=== PATIENT | male | born 1955 | race Caucasian/White ===

== ENCOUNTER 2016-11-07 13:40 | Observation (INO) | payer BC, OTHER ==
[~2016-11-07] VITALS: Ht 180.3 cm; Wt 96.2 kg
[~2016-11-07 13:40] MED LIST: ASPI81TA28 PO; ATOR-24 PO; CLOP1TAB15 PO; METO50TA7 PO; MULT-190 PO; NITR0.4S UT; [UNRECOGNIZED DRUG - CODE] PO
[2016-11-07] MEDS ORDERED: ASPI325T39 PO (14:44)
[2016-11-07 14:45] LABS: BASO % 0.3 %; BASO ABS # 0.02 K/uL (0-0.2); COMPLETE YES; EOS % 2.1 %; HEMATOCRIT 44.3 % (42-52); IG% 0.1 %; LYMPH % 29.2 %; LYMPH ABS # 1.95 K/uL (1.2-3.4); MEAN CORPUSCULAR HEMOGLOBIN 30.3 pg (25-34); MEAN CORPUSCULAR HGB CONC 33.6 g/dl (32-36); MEAN PLATELET VOLUME 11.4 fL (7.4-10.4); MONO % 17.1 %; NEUT % 51.2 %; PLATELET COUNT 218 K/uL (130-400); RED BLOOD COUNT 4.92 M/uL (4.7-6.1); WHITE BLOOD COUNT 6.68 K/uL (4.8-10.8)
[2016-11-07] MEDS ORDERED: ATOR80TA PO (14:45)
--- NOTE | 2016-11-07 14:45 | EMERGENCY ROOM VISIT NOTE ---
History Report prepared by Xavier: Katarina Lauren Under the Supervision of: Dr. Ramiro Rodriguez M.D. First contact with patient: 14:10 Chief Complaint: CARDIAC ASSESSMENT Stated Complaint: DIZZY,LIGHTHEADED,HEART CONDITION Nursing Triage Summary: PT HERE SOME LIGHTHEADEDNESS AFTER GETTING UP FROM CHAIR WHILE AT HOME TODAY. PTS STATES HE WAS PALE. PT DENIES ANY CHEST PAIN OR SOB PT CHECKED BP AT HOME AND STATES IT WAS ELEVATED HX OF SEVERAL CARDIAC STENTS History of Present Illness The patient is a 61 year old male who presents to the Emergency Room with complaints of a sudden episode of dizziness that occurred earlier today. The patient states that he was sitting at a desk doing work and when he got up he became very dizzy. He ambulated to get his blood pressure cuff and when he measured his blood pressure it was 180/110 so he figured that he should come into the hospital. He denies any chest pain. The patient's states that he looks pale to her. The patient states that he has been eating normally and taking his medications normally. The patient has a history a heart disease and has multiple stents in his heart. His adds that he still has a minor artery in the back of his heart that is blocked because they were unable to stent it. When the patient had his first [place] in 2004, he had chest pain but in 2009 he did not have any chest pain and just had a syncopal event. Source of History: patient, spouse/significant other () Onset: earlier today Position: head Quality: other (dizziness) Timing: other (sudden) Associated Symptoms: No chest pain Review of Systems See HPI for pertinent positives & negatives. A total of 10 systems reviewed and were otherwise negative. Past Medical & Surgical Medical Problems: (1) AC MYOCARD INFARCT,OTH ANTER WALL,SUBSEQ EPI UNSPE (2) Benign hypertension (3) CAD (coronary artery disease) (4) Cardiac arrest (5) Chronic ischemic heart disease (6) Dizziness (7) Hyperlipidemia Surgical Problems: (1) S/P coronary artery stent placement (2) S/p lumbar spinal surgery Family History Lung disease Social History Smoking Status: Never Smoker Marital Status: Housing Status: lives with family Occupation Status: employed Current/Historical Medications Scheduled Ascorbic Acid (Vitamin C Tr/Christy Hips), 1 TAB PO DAILY Aspirin (Aspirin Ec), 325 MG PO DAILY Atorvastatin Calcium (Lipitor), 80 MG PO DAILY Clopidogrel (Plavix), 75 MG PO DAILY Lisinopril (Lisinopril), 2.5 MG PO DAILY Multiple Vitamins W/ Minerals (Centrum Adults), 1 TAB PO DAILY [place] 3 Fatty Acids-[place] 6 Fa ([place] 3-6-9 Complex), 1 CAP PO DAILY [cardio relax], 1 TAB PO DAILY [myocord balance], 1 TAB PO DAILY Scheduled PRN Nitroglycerin (Nitrostat), 0.4 MG UT PRN PRN for Chest Pain Allergies Coded Allergies: No Known Allergies (Unverified , 11/07/16) Physical Exam Vital Signs Date Time Temp Pulse Resp B/P Pulse Ox O2 Delivery O2 Flow Rate FiO2 11/07/16 14:30 57 17 93 11/07/16 14:30 98 Nasal Cannula 2.0 11/07/16 14:28 162/86 11/07/16 14:25 54 17 95 11/07/16 14:20 57 21 97 11/07/16 14:15 56 26 96 11/07/16 14:14 143/96 11/07/16 14:10 58 19 95 11/07/16 14:08 57 11/07/16 14:05 54 23 96 11/07/16 14:02 97 Room Air 11/07/16 14:00 57 16 155/84 98 Room Air 11/07/16 13:59 155/84 11/07/16 13:43 36.4 59 16 176/100 99 Room Air Physical Exam GENERAL: Patient is a healthy-appearing well-nourished middle-aged male HEAD: Normocephalic atraumatic EYES: Ocular movements intact pupils equal and react to light OROPHARYNX mucous membranes are moist no exudates present no erythema or edema present NECK: Supple no nuchal rigidity CHEST: Good equal expansion LUNGS: Clear and equal to auscultation CARDIAC: Normal S1 and S2 ABDOMEN: Soft nontender no guarding BACK: No CVA tenderness EXTREMITIES: No pain upon palpation normal muscle strength in all groups no clubbing cyanosis or edema NEURO: Patient is following commands is answering questions appropriately. Alert and oriented x3 Cranial Nerves 2-12 grossly intact Medical Decision & Procedures ER Provider Diagnostic Interpretation: X-ray results as stated below per interpretation by me and the radiologist: CHEST ONE VIEW PORTABLE CLINICAL HISTORY: Atypical chest pain COMPARISON STUDY: 11/14/2012 FINDINGS: The cardiac and mediastinal contours remain stable. There is no focal pulmonary consolidation. There are no pleural effusions. There is no failure. There are minor right basilar atelectatic changes.[ IMPRESSION: No active disease in the chest. Electronically signed by: Easton Garcia M.D. 11/07/2016 2:45 PM Laboratory Results 11/07/16 14:15 Red Blood Count 4.92, Mean Corpuscular Volume 90.0, Mean Corpuscular Hemoglobin 30.3, Mean Corpuscular Hemoglobin Concent 33.6, Mean Platelet Volume 11.4, Neutrophils (%) (Auto) 51.2, Lymphocytes (%) (Auto) 29.2, Monocytes (%) (Auto) 17.1, Eosinophils (%) (Auto) 2.1, Basophils (%) (Auto) 0.3, Neutrophils # (Auto ) 3.42, Lymphocytes # (Auto) 1.95, Monocytes # (Auto) 1.14, Eosinophils # (Auto ) 0.14, Basophils # (Auto) 0.02 11/07/16 14:15 Test 11/07/16 14:15 White Blood Count 6.68 K/uL (4.8-10.8) Red Blood Count 4.92 M/uL (4.7-6.1) Hemoglobin 14.9 g/dL (14.0-18.0) Hematocrit 44.3 % (42-52) Mean Corpuscular Volume 90.0 fL (80-100) Mean Corpuscular Hemoglobin 30.3 pg (25-34) Mean Corpuscular Hemoglobin Concent 33.6 g/dl (32-36) Platelet Count 218 K/uL (130-400) Mean Platelet Volume 11.4 fL (7.4-10.4) Neutrophils (%) (Auto) 51.2 % Lymphocytes (%) (Auto) 29.2 % Monocytes (%) (Auto) 17.1 % Eosinophils (%) (Auto) 2.1 % Basophils (%) (Auto) 0.3 % Neutrophils # (Auto) 3.42 K/uL (1.4-6.5) Lymphocytes # (Auto) 1.95 K/uL (1.2-3.4) Monocytes # (Auto) 1.14 K/uL (0.11-0.59) Eosinophils # (Auto) 0.14 K/uL (0-0.5) Basophils # (Auto) 0.02 K/uL (0-0.2) RDW Standard Deviation 43.8 fL (36.4-46.3) RDW Coefficient of Variation 13.4 % (11.5-14.5) Immature Granulocyte % (Auto) 0.1 % Immature Granulocyte # (Auto) 0.01 K/uL (0.00-0.02) Prothrombin Time 10.7 SECONDS (9.0-12.0) Prothromb Time International Ratio 1.0 (0.9-1.1) D-Dimer 250 ug/L FEU (0-500) Anion Gap 9.0 mmol/L (3-11) Est Creatinine Clear Calc Drug Dose 84.1 ml/min Estimated GFR () 83.5 Estimated GFR (Non- 72.1 BUN/Creatinine Ratio 13.5 (10-20) Calcium Level 8.5 mg/dl (8.5-10.1) Total Bilirubin 0.7 mg/dl (0.2-1) Direct Bilirubin 0.2 mg/dl (0-0.2) Aspartate Amino Transf (AST/SGOT) 31 U/L (15-37) Alanine Aminotransferase (ALT/SGPT) 49 U/L (12-78) Alkaline Phosphatase 93 U/L (45-117) Total Protein 7.7 gm/dl (6.4-8.2) Albumin 3.8 gm/dl (3.4-5.0) Lipase 106 U/L (73-393) Thyroid Stimulating Hormone (TSH) 2.220 uIu/ml (0.300-4.500) Lyme Disease IgG Antibody NEG (NEG) Lyme Disease IgM Antibody NEG (NEG) Hepatitis C Antibody Screen NEG (NEG) Labs reviewed by ED physician. ECG Indication: other (dizziness) Rate (beats per minute): 58 Rhythm: sinus bradycardia Findings: no acute ischemic change, no ectopy ED Course 1419: Past medical records reviewed. The patient was evaluated in room B4. A complete history and physical examination was performed. 1517: Upon reexamination the patient is resting comfortably. I discussed results and treatment plan with the patient. He verbalizes agreement and understanding. The patient will be evaluated for further management. 1521: I discussed the patient's case with Tiff Jeff, she has agreed to evaluate the patient for further management and care. Medical Decision Differential diagnosis: Etiologies such as cardiac ischemia, aortic dissection, pulmonary embolism, pneumonia, pneumothorax, musculoskeletal, infections, pericarditis, myocarditis , esophageal rupture, gastrointestinal, as well as others were entertained. This is a 61-year-old male who presents emergency department complaining of weakness and dizziness after standing up today. The patient has normal orthostatic vital signs. I'm concerned about the patient's story because these are the same symptoms but the patient had when he had a heart attack and needed stents approximate 4 years ago. Based on this finding I did discuss the case with the hospitalist service who agreed to admit the patient for cardiac rule out. The patient has normal CK-MB troponin as well as EKG. I discussed my findings with the patient in the hospital service who were in agreement with the treatment plan. Consults Time Called: 1516 Consulting Physician: Tiff Jeff Returned Call: 1521 I discussed the patient's case with Tiff Jeff, she has agreed to evaluate the patient for further management and care. Impression Primary Impression: Dizziness Scribe Attestation The scribe's documentation has been prepared under my direction and personally reviewed by me in its entirety. I confirm that the note above accurately reflects all work, treatment, procedures, and medical decision making performed by me. Departure Information Dispostion Being Evaluated By Hospitalist Prescriptions Lisinopril (Lisinopril) 2.5 Mg Tab 2.5 MG PO DAILY for 30 Days, #30 TABS 5 Refills Prov: Katty Aguirre M.D. 11/08/16 Referrals Cierra Vigil M.D. (PCP) Patient Instructions A Signature Page, My [facility]
[2016-11-07 14:52] LABS: ALT/SGPT 49 U/L (12-78); AST/SGOT 31 U/L (15-37); BLOOD UREA NITROGEN 15 mg/dl (7-18); BUN/CREATININE RATIO 13.5 (10-20); CALCIUM 8.5 mg/dl (8.5-10.1); CARBON DIOXIDE 29 mmol/L (21-32); CHLORIDE 105 mmol/L (98-107); GLUCOSE 87 mg/dl (70-99); POTASSIUM 4.1 mmol/L (3.5-5.1); SODIUM 143 mmol/L (136-145)
[2016-11-07 14:57] LABS: ALKALINE PHOSPHATASE 93 U/L (45-117); CKMB/CK RATIO 1.7 (0-3.0)
[2016-11-07] MEDS ORDERED: NITROGLYCERIN 0.4 MG SL PER TAB CHARGE UT PRN (15:30)
[2016-11-07 15:40] VITALS: O2SAT 95; Ht 180.3 cm; Wt 96.2 kg
[2016-11-07] MEDS ORDERED: ALUMINUM/MAGNESIUM/SIMETH (MAALOX MAX) 30 ML UDC PO PRN (15:45)
[2016-11-07] MEDS ORDERED: ACETAMINOPHEN 325 MG TAB PO PRN (15:45)
[2016-11-07] MEDS ORDERED: NITROGLYCERIN 0.4 MG SL PER TAB CHARGE SL PRN (15:45)
[2016-11-07] MEDS ORDERED: POLYETHYLENE (MIRALAX) 17 GM PACK PO PRN (15:45)
[2016-11-07] MEDS ORDERED: ONDANSETRON INJ 2 MG/ML 2 ML VIAL IV PRN (15:45)
[2016-11-07] MEDS ORDERED: MAGNESIUM HYDROXIDE SUSP 30 ML UDC PO PRN (15:45)
[2016-11-07] MEDS ORDERED: MULT-610 PO (16:09)
[2016-11-07] MEDS ORDERED: OMEG1CAP71 PO (16:14)
[2016-11-07] MEDS ORDERED: ASCO500T87 PO (16:14)
[2016-11-07] MEDS ORDERED: [UNRECOGNIZED DRUG - OTHER] PO (16:14)
[2016-11-07] MEDS ORDERED: [UNRECOGNIZED DRUG - OTHER] PO (16:14)
[2016-11-07 16:27] LABS: PROTHROMBIN TIME (PATIENT) 10.7 SECONDS (9.0-12.0)
--- NOTE | 2016-11-07 16:51 | History and Physical ---
History & Physical Date & Time of Service: Nov 07, 2016 at 16:14 Chief Complaint: Dizzy,Lightheaded,Heart Condition Primary Care Physician: Cierra Vigil M.D. History of Present Illness Source: patient, spouse ( at bedside), clinic records This is a 61 y/o male with PMH of CAD s/p multiple stents, HTN, dyslipidemia, who presents to the ED with dizziness episode. Pt follows with Dr. Vigil for primary care and Dr. Johnson for cardiology. Patient states he was in his normal state of health until 10:30 am today he was sitting at his computer then stood up and became lightheaded. He checked his HR on his apple watch and it was 54. He used his home BP cuff and found BP of 176/106. He states he BP usually runs 120s/70s and HR usually runs around 66 at home. The episode lasted 30 minutes and then resolved spontaneously. He was standing and sitting during that time and did not notice improvement with sitting. He ate his usual breakfast today- a bagel and breakfast bar and 2 cups of coffee. He took his usual meds today including metoprolol succinate 50 mg. Recently his atorvastatin was increased to 80 mg daily. About 4 days ago he started supplements he ordered online called Myocord and Cardio Relax. No other recent med changes. He reports intermittent upset stomach after drinking coffee but no vomiting or diarrhea. PO intake has been normal. He has been active walking every day. Denies fever, chills, URI symptoms, LOC, RAMIRES, vision change, focal weakness or numbness, speech difficulty, vertigo, hearing loss, tinnitus, chest pain, palpitations, SOB, ZEPEDA, cough, abdominal pain calf pain or swelling. He states his [place] in 2009 presented as dizziness and syncope. Last stress test negative in 02/2015. Past Medical/Surgical History Medical Problems: (1) AC MYOCARD INFARCT,OTH ANTER WALL,SUBSEQ EPI UNSPE Status: Resolved (2) Benign hypertension Status: Chronic (3) CAD (coronary artery disease) Permanent Comment: S/[place] [facility] [place], NSTEMI 08/27/2010 with VF cardiac arrest s/p successful resuscitation, s/p PCI to LAD with TUAN [place] [facility] [place]; abnormal stress test in May 2011- repeat cath June 2011 at [facility] [place] showed patent LAD and RCA stents, obtuse marginal culprit for ischemia- not amenable to PCI Status: Chronic (4) Cardiac arrest Status: Resolved (5) Chronic ischemic heart disease Status: Chronic (6) Hyperlipidemia Status: Chronic Surgical Problems: (1) S/P coronary artery stent placement Status: Chronic (2) S/p lumbar spinal surgery Status: Chronic Family History Cardiac disorder FATHER UNCLE Diabetes mellitus FATHER Lung disease Social History Smoking Status: Never Smoker Alcohol Use: 3 beers a few times per week. last intake yesterday. Drug Use: none Marital Status: Housing status: lives with significant other Occupational Status: employed Immunizations History of Influenza Vaccine: Yes History of Tetanus Vaccine?: Yes History of Pneumococcal: Yes History of Hepatitis B Vaccine: No Multi-Drug Resistant Organisms History of MDRO: No Allergies Coded Allergies: No Known Allergies (Unverified , 11/07/16) Home Medications Scheduled Ascorbic Acid (Vitamin C Tr/Christy Hips), 1 TAB PO DAILY Aspirin (Aspirin Ec), 325 MG PO DAILY Atorvastatin Calcium (Lipitor), 80 MG PO DAILY Clopidogrel (Plavix), 75 MG PO DAILY Metoprolol Succ (Toprol Xl) (Toprol-Xl), 50 MG PO DAILY Multiple Vitamins W/ Minerals (Centrum Adults), 1 TAB PO DAILY [place] 3 Fatty Acids-[place] 6 Fa ([place] 3-6-9 Complex), 1 CAP PO DAILY [cardio relax], 1 TAB PO DAILY [myocord balance], 1 TAB PO DAILY Scheduled PRN Nitroglycerin (Nitrostat), 0.4 MG UT PRN PRN for Chest Pain Review of Systems Ten system ROS obtained with pertinent positives and negatives noted in HPI. Physical Exam Vital Signs Date Time Temp Pulse Resp B/P Pulse Ox O2 Delivery O2 Flow Rate FiO2 11/07/16 15:40 95 Room Air 11/07/16 14:30 57 17 93 11/07/16 14:30 98 Nasal Cannula 2.0 11/07/16 14:28 162/86 11/07/16 14:25 54 17 95 11/07/16 14:20 57 21 97 11/07/16 14:15 56 26 96 11/07/16 14:14 143/96 11/07/16 14:10 58 19 95 11/07/16 14:08 57 11/07/16 14:05 54 23 96 11/07/16 14:02 97 Room Air 11/07/16 14:00 57 16 155/84 98 Room Air 11/07/16 13:59 155/84 11/07/16 13:43 36.4 59 16 176/100 99 Room Air General Appearance: WD/WN, no apparent distress, + pertinent finding (pleasant alert 61 y/o male, at bedside) Head: normocephalic, atraumatic Eyes: normal inspection, PERRL, EOMI ENT: normal ENT inspection, hearing grossly normal, pharynx normal Neck: supple, no JVD, no carotid bruits, trachea midline Respiratory/Chest: lungs clear, normal breath sounds, no respiratory distress, no accessory muscle use Cardiovascular: no murmur, + bradycardia (HR 58-60, regular), + pertinent finding (radial pulses 2+, DP pulses 1+) Abdomen/GI: normal bowel sounds, non tender, soft Extremities/Musculoskelatal: normal inspection, no calf tenderness, no pedal edema Neurologic/Psych: sound cutter II-XII nml as tested, alert, normal mood/affect, oriented x 3, + pertinent finding (no focal motor deficit- strength 5/5 all extremities) Skin: normal color, warm/dry Diagnostics Laboratory Results Results Past 24 Hours Test 11/07/16 14:15 Range/Units White Blood Count 6.68 4.8-10.8 K/uL Red Blood Count 4.92 4.7-6.1 M/uL Hemoglobin 14.9 14.0-18.0 g/dL Hematocrit 44.3 42-52 % Mean Corpuscular Volume 90.0 80-100 fL Mean Corpuscular Hemoglobin 30.3 25-34 pg Mean Corpuscular Hemoglobin Concent 33.6 32-36 g/dl Platelet Count 218 130-400 K/uL Mean Platelet Volume 11.4 7.4-10.4 fL Neutrophils (%) (Auto) 51.2 % Lymphocytes (%) (Auto) 29.2 % Monocytes (%) (Auto) 17.1 % Eosinophils (%) (Auto) 2.1 % Basophils (%) (Auto) 0.3 % Neutrophils # (Auto) 3.42 1.4-6.5 K/uL Lymphocytes # (Auto) 1.95 1.2-3.4 K/uL Monocytes # (Auto) 1.14 0.11-0.59 K/uL Eosinophils # (Auto) 0.14 0-0.5 K/uL Basophils # (Auto) 0.02 0-0.2 K/uL RDW Standard Deviation 43.8 36.4-46.3 fL RDW Coefficient of Variation 13.4 11.5-14.5 % Immature Granulocyte % (Auto) 0.1 % Immature Granulocyte # (Auto) 0.01 0.00-0.02 K/uL Sodium Level 143 136-145 mmol/L Potassium Level 4.1 3.5-5.1 mmol/L Chloride Level 105 98-107 mmol/L Carbon Dioxide Level 29 21-32 mmol/L Anion Gap 9.0 3-11 mmol/L Blood Urea Nitrogen 15 7-18 mg/dl Creatinine 1.10 0.60-1.40 mg/dl Est Creatinine Clear Calc Drug Dose 84.1 ml/min Estimated GFR () 83.5 Estimated GFR (Non- 72.1 BUN/Creatinine Ratio 13.5 10-20 Random Glucose 87 70-99 mg/dl Calcium Level 8.5 8.5-10.1 mg/dl Total Bilirubin 0.7 0.2-1 mg/dl Direct Bilirubin 0.2 0-0.2 mg/dl Aspartate Amino Transf (AST/SGOT) 31 15-37 U/L Alanine Aminotransferase (ALT/SGPT) 49 12-78 U/L Alkaline Phosphatase 93 45-117 U/L Total Creatine Kinase 94 39-308 U/L Creatine Kinase MB 1.6 0.5-3.6 ng/ml Creatine Kinase MB Ratio 1.7 0-3.0 Troponin I < 0.015 0-0.045 ng/ml Total Protein 7.7 6.4-8.2 gm/dl Albumin 3.8 3.4-5.0 gm/dl Lipase 106 73-393 U/L Diagnostic Radiology CHEST ONE VIEW PORTABLE CLINICAL HISTORY: Atypical chest pain COMPARISON STUDY: 11/14/2012 FINDINGS: The cardiac and mediastinal contours remain stable. There is no focal pulmonary consolidation. There are no pleural effusions. There is no failure. There are minor right basilar atelectatic changes.[ IMPRESSION: No active disease in the chest. EKG sinus bradycardia, rate 58, no T wave or ST abnormalities Impression Assessment and Plan DIZZINESS EPISODE- resolved Observation to telemetry Patient with significant cardiac history outlined below Currently in sinus bradycardia rate 50s- may be contributing; BP elevated; CXR unremarkable EKG non-ischemic; troponin negative- will trend serial enzymes; recheck EKG in am Check orthostatic vitals Hold beta graciela (metoprolol succinate 50 mg daily) for bradycardia Check TSH Check echo Tele monitoring to r/o arrhythmia CAD S/P MULTIPLE STENTS S/p RCA stent [place] [facility] [place], NSTEMI 08/27/2010 with VF cardiac arrest s/p successful resuscitation, s/p PCI to LAD with TUAN at [facility] [place]; abnormal stress test in May 2011- repeat cath June 2011 at [facility] [place] showed patent LAD and RCA stents, obtuse marginal culprit for ischemia- not amenable to PCI Last exercise stress echo 02/2015 negative; resting study showed EF 55-59%, grade I diastolic dysfunction, no significant valvular disease Denies chest pain; EKG non-ischemic, trop negative x 1- will trend Continue aspirin, Plavix, statin Hold BB for bradycardia Follows with Dr. Johnson Instructed patient not to take supplements without talking to collections associate HYPERTENSION BP is elevated Hold metoprolol for bradycardia DYSLIPIDEMIA Recent lipid panel 09/11/2016 showed LDL 91 Atorvastatin recently increased from 40 mg -> 80 mg- continue Check lipid panel in AM DVT PROPHYLAXIS Heparin SQ DISPOSITION Tele observation Lives at home with . Patient seen in collaboration with Dr. Aguirre. Please see her addendum. ATTENDING NOTE : pt seen and examined, in agreement with above h&P 61 yo M with past medical hx of extensive Cardiac hx -PTCA .-multiple , V fib cardiac arrest , HTN presented with episode of dizzy spell pt was working on his computer for few hours -stood up felt dizzy , lightheaded , no syncope did not had nausea, diaphoresis , no SOB , no chest heaviness checked his HR was in 50's , BP was elevated ~ 170 His dizzy spell lasted for 30 mins resolved spontaneously in the ED -pt was absolutely symptom free cardiac markers been negative , EKG sinus bradycardia , Cxray wnl P/E: GEn : no sign of distress HEENT : sclera non icteric , PERRLA/EOMI Lungs: CTA ,no wheeze or rales Abdomen: soft,. non tender ext : no rash or deformity Neuro: no focal neurological deficit A/P : Dizzy spell : not sure of the etiology pt does not have any neurological symptom , no visual complain, no headache found to be bradycardic observe in Tele to R/o arrhythmia will hold Beta graciela TSH -wnl serial cardiac markers , resting ECHO in AM ordered for orthostatic vitals Hx of CAD : s/p multiple PTCA recently evaluated by Dr Johnson -found to be instable cardiac health no chest pain or SOB at baseline pt dose exercise , work out in static bicycle -does not experience any chest discomfort , SOB or angina with exertion pt will be continued on Aspirin , Plavix , statin hold Beta graciela for possible symptomatic bradycardia pt will need out pt stress test last cardiac stress test was 2 yrs back -wnl Hyperlipidemia : Lipitor level recently increased to 80 mg daily by cardiology Fasting lipid panel ordered Full code DISPOSITION : possible D/c home tomorrow if preliminary cardiac work up negative will need out pt stress test Level of Care Telemetry Advanced Directives Existing Advance Directive: No Existing Living Will: Yes Existing Power of Communications Editor: No Resuscitation Status FULL RESUSCITATION VTE Prophylaxis VTE Risk Assessment Done? Y/N: Yes Risk Level: Moderate Given or contraindicated: T.E.D. Stockings, SCD's
[2016-11-07] MEDS ORDERED: IV FLUIDS COMPLETED PRN (17:15)
[2016-11-07 17:54] LABS: LYME DISEASE AB IGG NEG (NEG); LYME DISEASE AB IGM NEG (NEG)
[2016-11-07 18:14] VITALS: O2SAT 96
[2016-11-07 18:33] VITALS: BP 154/91; PULSE 60; TEMP 36.6; O2SAT 96
[2016-11-07] MEDS ORDERED: SODIUM CHLORIDE 0.9% 1000ML 1,000 ML IV SCH (19:00)
[2016-11-07] MEDS: HEPARIN SOD 5000 UNIT/0.5 ML CARP SQ SCH (20:34)
[2016-11-07 22:08] LABS: CKMB/CK RATIO 1.8 (0-3.0)
[2016-11-07 23:29] VITALS: BP 160/82; PULSE 59; TEMP 36.3; O2SAT 95
[2016-11-08 05:09] VITALS: BP_SYST 144; BP_SYST 159; BP_DIAS 79; PULSE 57; PULSE 88; TEMP 36.4; TEMP 36.9; O2SAT 90; O2SAT 95
[2016-11-08 06:22] LABS: CHOLESTEROL 134 mg/dl (0-200); CHOLESTEROL/HDL RATIO 3.4; CKMB/CK RATIO 2.2 (0-3.0); HDL CHOLESTEROL 40 mg/dl; LDL CHOLESTEROL CALCULATED 68 mg/dl; TRIGLYCERIDES 129 mg/dl (0-150); VERY LOW DENSITY LIPOPROT CALC 26 mg/dl
--- NOTE | 2016-11-08 07:33 | Discharge Instructions ---
Discharge Instructions Admission Reason for Admission: Dizziness Discharge Discharge Diagnosis / Problem: DIZZY SPELL /BRADYCARDIA Discharge Goals Goal(s): Improve disease control, Diagnostic testing Activity Recommendations Activity Limitations: resume your previous activity . Instructions / Follow-Up Instructions / Follow-Up HOSPITAL FOLLOW UP WITH DR PAIGE IN A WEEK , OFFICE WILL CALL WITH APPOINTMENT CARDIOLOGY FOLLOW UP WITH DR BROOKS IN 2-3 WEEKS DO NOT TAKE LOPRESSOR TILL EVALUATED BY CARDIOLOGY PLEASE DISCUSS WITH CARDIOLOGY BEFORE TAKING ANY ADDITIONAL SUPPLEMENTAL MEDICATION FOR YOUR HEART CONDITION WILL NEED OUT PATIENT STRESS TEST Current Hospital Diet Patient's current hospital diet: AHA Diet (Heart Healthy) Discharge Diet Recommended Diet: AHA Diet (Heart Healthy) Pending Studies Studies pending at discharge: no Laboratory Results Lipid Panel Test 11/08/16 05:35 Range/Units Triglycerides Level 129 0-150 mg/dl Cholesterol Level 134 0-200 mg/dl HDL Cholesterol 40 mg/dl Cholesterol/HDL Ratio 3.4 LDL Cholesterol, Calculated 68 mg/dl Medical Emergencies . Who to Call and When: Medical Emergencies: If at any time you feel your situation is an emergency, please call 911 immediately. . Non-Emergent Contact Non-Emergency issues call your: Primary Care Provider . . "Provider Documentation" section prepared by Katty Aguirre. VTE Core Measure Inpt VTE Proph given/why not?: LORENA Bazzi's [place] Drug Monitoring Program Search Results: no issues identified
[2016-11-08] MEDS: HEPARIN SOD 5000 UNIT/0.5 ML CARP SQ SCH (07:38)
[2016-11-08 08:07] VITALS: BP_SYST 152; PULSE 50; TEMP 36.4; O2SAT 93
--- NOTE | 2016-11-08 08:52 | ECHOCARDIOGRAM REPORT ---
*NOTICE TO RECEIVING CONSTITUTION PARTY AGENCY This information is strictly Confidential and protected under [place] law. [place] law prohibits you from making any further disclosure of this information unless further disclosure is expressly permitted by the written consent of the person to whom it pertains or is authorized by law. A general authorization for the release of medical or other information is not sufficient for this purpose. Hospital accepts no responsibility if the information is made available to any other person, INCLUDING THE PATIENT. Interpretation Summary * Name: TIFFANIE MANNING Study Date: 11/08/2016 07:39 AM BP: 144/79 mmHg * Patient Location: [facility]\S\N288\S\1 HR: 57 * : 1955 (M/d/yyyy) Gender: Male Height: 70 in * Age: 61 yrs Ethnicity: [place] Weight: 216 lb * Ordering Physician: Katty Aguirre * Referring Physician: Self, Referred * Performed By: Kary Langley RDCS * * Reason For Study: Chest Pain, Bradycardia, Dizziness. * BSA: 2.2 m2 * -- Conclusions -- * Normal LV chamber size with mild concentric LVH. * Normal LV systolic function, EF 55-60%. * No segmental left ventricular wall motion abnormalities are noted. * Grade I diastolic dysfunction. * No significant valvular pathology. Procedure Details * A complete two-dimensional transthoracic echocardiogram was performed (2D, M-mode, Doppler and color flow Doppler). Left Ventricle * The left ventricle is normal in size. * There is mild concentric left ventricular hypertrophy. * Ejection Fraction = 55-60%. * Left ventricular systolic function is normal. * No segmental left ventricular wall motion abnormalities are noted. * The left ventricular wall motion is normal. Right Ventricle * The right ventricular cavity size is normal (basal dimension <4.2 cm in right ventricular apical 4-chamber view). * The right ventricular systolic function is normal as assessed by tricuspid annular plane systolic excursion (TAPSE) (normal >1.5 cm). Atria * The left atrium is mildly dilated. * Right atrial size is normal. * No ASD detected; PFO is not assessed. Mitral Valve * The mitral valve is normal in structure and function. Tricuspid Valve * The tricuspid valve is normal in structure and function. Aortic Valve * The aortic valve is normal in structure and function. Pulmonic Valve * The pulmonary valve is not well seen, but the Doppler examination is normal without significant regurgitation or stenosis. Great Vessels * The aortic root is normal size. Pericardium/Pleural * There is no pericardial effusion. Left Ventricular Diastolic Function * Grade I diastolic dysfunction, (abnormal relaxation pattern). MMode 2D Measurements and Calculations IVSd 1.2 cm IVSs 1.6 cm LVIDd 5.7 cm LVIDs 3.9 cm LVPWd 0.88 cm LVPWs 1.3 cm IVS/LVPW 1.4 FS 31.9 % EDV(Teich) 160.7 ml ESV(Teich) 65.4 ml EF(Teich) 59.3 % EDV(cubed) 186.2 ml ESV(cubed) 58.8 ml EF(cubed) 68.4 % % IVS thick 29.6 % % LVPW thick 43.3 % LV mass(C)d 245.3 grams LV mass(C)dI 113.8 grams/m\S\2 LV mass(C)s 208.4 grams LV mass(C)sI 96.6 grams/m\S\2 SV(Teich) 95.3 ml SI(Teich) 44.2 ml/m\S\2 SV(cubed) 127.4 ml SI(cubed) 59.1 ml/m\S\2 Ao root diam 3.8 cm Ao root area 11.2 cm\S\2 ACS 2.4 cm LA dimension 4.3 cm LA/Ao 1.1 LVAd ap4 33.1 cm\S\2 LVLd ap4 8.9 cm EDV(MOD-sp4) 104.9 ml EDV(sp4-el) 104.6 ml LVAs ap4 19.1 cm\S\2 LVLs ap4 7.2 cm ESV(MOD-sp4) 44.3 ml ESV(sp4-el) 42.7 ml EF(MOD-sp4) 57.7 % EF(sp4-el) 59.2 % LVAd ap2 31.3 cm\S\2 LVLd ap2 8.9 cm EDV(MOD-sp2) 96.0 ml EDV(sp2-el) 93.2 ml LVAs ap2 17.7 cm\S\2 LVLs ap2 7.3 cm ESV(MOD-sp2) 38.7 ml ESV(sp2-el) 36.3 ml EF(MOD-sp2) 59.6 % EF(sp2-el) 61.0 % LVLd %diff 0.54 % EDV(MOD-bp) 99.9 ml LVLs %diff 1.5 % ESV(MOD-bp) 41.8 ml EF(MOD-bp) 58.1 % SV(MOD-sp4) 60.5 ml SI(MOD-sp4) 28.1 ml/m\S\2 SV(MOD-sp2) 57.2 ml SI(MOD-sp2) 26.5 ml/m\S\2 SV(MOD-bp) 58.1 ml SI(MOD-bp) 26.9 ml/m\S\2 SV(sp4-el) 61.9 ml SI(sp4-el) 28.7 ml/m\S\2 SV(sp2-el) 56.9 ml SI(sp2-el) 26.4 ml/m\S\2 Doppler Measurements and Calculations MV E max hansel 57.7 cm/sec MV A max hansel 69.6 cm/sec MV E/A 0.83 MV dec time 0.36 sec Ao V2 max 98.0 cm/sec Ao max PG 3.8 mmHg Ao max PG (full) 1.0 mmHg LV V1 max PG 2.8 mmHg LV V1 max 83.8 cm/sec PA V2 max 92.4 cm/sec PA max PG 3.4 mmHg PI max hansel 180.1 cm/sec PI max PG 13.0 mmHg PI dec slope 193.0 cm/sec\S\2 PI P1/2t 273.4 msec
[2016-11-08] MEDS ORDERED: METOPROLOL SUCC 50MG EXT REL TAB PO SCH (09:00)
[2016-11-08] MEDS ORDERED: ASPIRIN 325 MG ECTAB PO SCH (09:00)
[2016-11-08] MEDS ORDERED: ATORVASTATIN 40 MG TAB PO SCH (09:00)
[2016-11-08] MEDS ORDERED: CEROVITE ADV FORMULA TAB PO SCH (09:00)
[2016-11-08] MEDS ORDERED: CLOPIDOGREL BISULFATE 75 MG TAB PO SCH (09:00)
[2016-11-08] MEDS ORDERED: LSN25 PO (11:03)
[2016-11-08] MEDS ORDERED: LISINOPRIL 2.5 MG TAB PO ONE (11:15)
[2016-11-08 11:29] VITALS: BP 146/91; PULSE 65; TEMP 37; O2SAT 98
[2016-11-08 11:43] VITALS: BP 146/91; PULSE 65; TEMP 37; O2SAT 98
[2016-11-08] MEDS ORDERED: LISINOPRIL 2.5 MG TAB PO SCH (11:45)
--- NOTE | 2016-11-08 20:50 | Discharge Summary ---
Discharge Summary Admission Date: Nov 07, 2016 at 15:33 Discharge Date: Nov 08, 2016 Discharge Disposition: Home Principal Diagnosis: DIZZY SPELL /BRADYCARDIA Procedures: ECHO 11/08/16 : Normal LV chamber size with mild concentric LVH. Normal LV systolic function, EF 55-60%. No segmental left ventricular wall motion abnormalities are noted. Grade I diastolic dysfunction. No significant valvular pathology. CARDIAC MONITORING Pending Studies/Follow-Up: HOSPITAL FOLLOW UP WITH DR VIGIL IN A WEEK , OFFICE WILL CALL WITH APPOINTMENT CARDIOLOGY FOLLOW UP WITH DR BROOKS IN 2-3 WEEKS DO NOT TAKE LOPRESSOR TILL EVALUATED BY CARDIOLOGY PLEASE DISCUSS WITH CARDIOLOGY BEFORE TAKING ANY ADDITIONAL SUPPLEMENTAL MEDICATION FOR YOUR HEART CONDITION WILL NEED OUT PATIENT STRESS TEST Medication Reconciliation New Medications: Lisinopril (Lisinopril) 2.5 Mg Tab 2.5 MG PO DAILY for 30 Days, #30 TABS 5 Refills Continued Medications: Ascorbic Acid (Vitamin C Tr/Christy Hips) 500 Mg Tab 1 TAB PO DAILY Aspirin (Aspirin Ec) 325 Mg Tab 325 MG PO DAILY Atorvastatin Calcium (Lipitor) 80 Mg Tab 80 MG PO DAILY, TAB Clopidogrel (Plavix) 75 Mg Tab 75 MG PO DAILY, 0 Refills Multiple Vitamins W/ Minerals (Centrum Adults) 1 Tab Tab 1 TAB PO DAILY Nitroglycerin (Nitrostat) 0.4 Mg Sub 0.4 MG UT PRN PRN for Chest Pain, BTL [place] 3 Fatty Acids-[place] 6 Fa ([place] 3-6-9 Complex) 1 Cap Cap 1 CAP PO DAILY [cardio relax] () 1 TAB PO DAILY [myocord balance] () 1 TAB PO DAILY Discontinued Medications: Metoprolol Succ (Toprol Xl) (Toprol-Xl) 50 Mg Tabcr 50 MG PO DAILY, #30 0 Refills Referrals At Discharge Follow up Referrals: Physician Referral - Within 1-2 Weeks with Barney Brooks D.O. Admission Information HPI (per Admitting provider): This is a 61 y/o male with PMH of CAD s/p multiple stents, HTN, dyslipidemia, who presents to the ED with dizziness episode. Pt follows with Dr. Vigil for primary care and Dr. Brooks for cardiology. Patient states he was in his normal state of health until 10:30 am today he was sitting at his computer then stood up and became lightheaded. He checked his HR on his apple watch and it was 54. He used his home BP cuff and found BP of 176/106. He states he BP usually runs 120s/70s and HR usually runs around 66 at home. The episode lasted 30 minutes and then resolved spontaneously. He was standing and sitting during that time and did not notice improvement with sitting. He ate his usual breakfast today- a bagel and breakfast bar and 2 cups of coffee. He took his usual meds today including metoprolol succinate 50 mg. Recently his atorvastatin was increased to 80 mg daily. About 4 days ago he started supplements he ordered online called Myocord and Cardio Relax. No other recent med changes. He reports intermittent upset stomach after drinking coffee but no vomiting or diarrhea. PO intake has been normal. He has been active walking every day. Denies fever, chills, URI symptoms, LOC, RAMIRES, vision change, focal weakness or numbness, speech difficulty, vertigo, hearing loss, tinnitus, chest pain, palpitations, SOB, ZEPEDA, cough, abdominal pain calf pain or swelling. He states his [place] in 2009 presented as dizziness and syncope. Last stress test negative in 02/2015. Physical Exam (per Admitting): General Appearance: WD/WN, no apparent distress, + pertinent finding ( pleasant alert 61 y/o male, at bedside) Head: normocephalic, atraumatic Eyes: normal inspection, PERRL, EOMI ENT: normal ENT inspection, hearing grossly normal, pharynx normal Neck: supple, no JVD, no carotid bruits, trachea midline Respiratory/Chest: lungs clear, normal breath sounds, no respiratory distress, no accessory muscle use Cardiovascular: no murmur, + bradycardia (HR 58-60, regular), + pertinent finding (radial pulses 2+, DP pulses 1+) Abdomen/GI: normal bowel sounds, non tender, soft Extremities/Musculoskelatal: normal inspection, no calf tenderness, no pedal edema Neurologic/Psych: lead producer II-XII nml as tested, alert, normal mood/affect, oriented x 3, + pertinent finding (no focal motor deficit- strength 5/5 all extremities) Skin: normal color, warm/dry Hospital Course Pt did not had any Dizzy spell or lightheadedness overnight ambulating independently in hallway , no symptom HR in 50's to 60's in monitor asymptomatic Beta graciela kept on hold no orthostatic change of BP stable to be discharged home today PHYSICAL EXAM : General Appearance: no sign of distress, pleasant a Head: normocephalic, atraumatic Eyes: normal inspection, PERRL, EOMI ENT: normal ENT inspection, hearing grossly normal, pharynx normal Neck: supple, no JVD, no carotid bruits, trachea midline Respiratory/Chest: lungs clear, normal breath sounds, no respiratory distress, no accessory muscle use Cardiovascular: no murmur, regular S1/S2 , remains bradycardic -in monitor HR 50-60's Abdomen/GI: normal bowel sounds, non tender, soft Extremities/Musculoskeletal: normal inspection, no calf tenderness, no pedal edema Neurologic/Psych: alert, normal mood/affect, oriented x 3, no focal motor deficit- strength 5/5 all extremities Skin: normal color, warm/dry DIZZINESS /LIGHTHEADED: presented with dizzy spell and light headedness no syncope symptom has resolved telemetry shows sinus bradycardia beta graciela in hold (metoprolol succinate 50 mg daily) for bradycardia EKG non-ischemic; troponin X3 negative- TSH -wnl , stable to be discharged home , asked not to take Metoprolol succinate out pt follow up with Cardiology at [facility] of CAD S/P MULTIPLE STENTS S/p RCA stent [place] [facility] [place], NSTEMI 08/27/2010 with VF cardiac arrest s/p successful resuscitation, s/p PCI to LAD with [facility] at [facility] [place]; abnormal stress test in May 2011- repeat cath June 2011 at [facility] [place] showed patent LAD and RCA stents, obtuse marginal culprit for ischemia- not amenable to PCI Last exercise stress echo 02/2015 negative; resting study showed EF 55-59%, grade I diastolic dysfunction, no significant valvular disease Denies chest pain;SOB, ZEPEDA EKG non-ischemic, trop negative x 3- pt is continued with aspirin, Plavix, statin BB discontinued for bradycardia Follows with Dr. Brooks-will need follow up with cardiology office for adjustment of medication ( possible resuming beta graciela at lower dose ) ECHO 11/08/16 : Normal LV chamber size with mild concentric LVH. Normal LV systolic function, EF 55-60%. No segmental left ventricular wall motion abnormalities are noted. Grade I diastolic dysfunction. No significant valvular pathology. Follow up with cardiology for out pt cardiac stress test HYPERTENSION BP was elevated on presentation -possible due to anxiety Hold metoprolol for bradycardia added low dose ACEI for BP control till seen by cardiology DYSLIPIDEMIA Recent lipid panel 09/11/2016 showed LDL 91 ( goal < 70 ) with low HDL Atorvastatin recently increased from 40 mg -> 80 mg PO daily fasting lipid panel in AM shows improvement of LDL 68 cont out pt follow up DVT PROPHYLAXIS Heparin SQ DISPOSITION stable to discharge home today Medicine follow up with Dr Cierra Vigil Cardiology follow up with Dr Brooks Discharge Instructions DI: Medical v4 Discharge Instructions Admission Reason for Admission: Dizziness Discharge Discharge Diagnosis / Problem: DIZZY SPELL /BRADYCARDIA Discharge Goals Goal(s): Improve disease control, Diagnostic testing Activity Recommendations Activity Limitations: resume your previous activity . Instructions / Follow-Up Instructions / Follow-Up HOSPITAL FOLLOW UP WITH DR VIGIL IN A WEEK , OFFICE WILL CALL WITH APPOINTMENT CARDIOLOGY FOLLOW UP WITH DR BROOKS IN 2-3 WEEKS DO NOT TAKE LOPRESSOR TILL EVALUATED BY CARDIOLOGY PLEASE DISCUSS WITH CARDIOLOGY BEFORE TAKING ANY ADDITIONAL SUPPLEMENTAL MEDICATION FOR YOUR HEART CONDITION WILL NEED OUT PATIENT STRESS TEST Current Hospital Diet Patient's current hospital diet: AHA Diet (Heart Healthy) Discharge Diet Recommended Diet: AHA Diet (Heart Healthy) Pending Studies Studies pending at discharge: no Laboratory Results Lipid Panel Test 11/08/16 05:35 Range/Units Triglycerides Level 129 0-150 mg/dl Cholesterol Level 134 0-200 mg/dl HDL Cholesterol 40 mg/dl Cholesterol/HDL Ratio 3.4 LDL Cholesterol, Calculated 68 mg/dl Medical Emergencies . Who to Call and When: Medical Emergencies: If at any time you feel your situation is an emergency, please call 911 immediately. . Non-Emergent Contact Non-Emergency issues call your: Primary Care Provider . . "Provider Documentation" section prepared by Katty Aguirre. VTE Core Measure Inpt VTE Proph given/why not?: Noris Strong, SCD's [place] Drug Monitoring Program Search Results: no issues identified Additional Copies To Cierra Vigil M.D. [place], Barney Menendez D.O.
[2016-11-09] MEDS ORDERED: LISINOPRIL 2.5 MG TAB PO SCH (09:00)
== END 2016-11-08 12:24 | disposition home or self-care (01) ==
LOC: ENRESERVTM → ENRESERVDT → C.EDB 13:41 → C.MED 15:33
PROVIDERS: ADMIT Hospitalist; ATTEND Hospitalist
DX: R42 Dizziness and giddiness (principal); R00.1 Bradycardia, unspecified; I25.2 Old myocardial infarction; I25.10 Atherosclerotic heart disease of native coronary artery without angina pectoris; I10 Essential (primary) hypertension; E78.5 Hyperlipidemia, unspecified; Z51.81 Encounter for therapeutic drug level monitoring; Z79.899 Other long term (current) drug therapy; Z79.82 Long term (current) use of aspirin; Z79.02 Long term (current) use of antithrombotics/antiplatelets; Z95.5 Presence of coronary angioplasty implant and graft; Z82.49 Family history of ischemic heart disease and other diseases of the circulatory system